=== PATIENT | female | born 1995 | race African-American/Black ===

== ENCOUNTER 2016-09-15 09:15 | Emergency (ER) | payer OTHER ==
[2016-09-15 09:28] VITALS: BP 122/67; PULSE 55; TEMP 97.9; BMI 23.1
[2016-09-15] MEDS ORDERED: diazePAM 5 MG TABLET PO ONE (10:10)
[2016-09-15] MEDS ORDERED: KETOROLAC TROMETHAMINE 60 MG/2 ML VIAL IM ONE (10:10)
[2016-09-15 10:12] LABS: URINE APPEARANCE CLEAR; URINE BILIRUBIN NEGATIVE (NEGATIVE); URINE COLOR LTYELLOW; URINE GLUCOSE (UA) NEGATIVE (NEGATIVE); URINE KETONE NEGATIVE (NEGATIVE); URINE NITRITE NEGATIVE (NEGATIVE); URINE PROTEIN NEGATIVE (NEGATIVE); URINE UROBILINOGEN NEGATIVE E.U./dl (0.2-1.0)
[2016-09-15 10:23] LABS: URINE BLOOD 1+ (NEGATIVE); URINE LEUK ESTERASE TRACE (NEGATIVE)
[2016-09-15 10:27] LABS: URINE MUCUS RARE; URINE RBC 1 /hpf (0-3); URINE WBC 1 /hpf (3-5)
[2016-09-15] MEDS ORDERED: diazePAM 5 MG TABLET ONE (10:27)
[2016-09-15] MEDS ORDERED: KETOROLAC TROMETHAMINE 60 MG/2 ML VIAL ONE (10:27)
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
== END 2016-09-15 11:42 | disposition home or self-care (01) ==
LOC: JERFT 09:15
PROC: 3E0233Z Introduction of Anti-inflammatory into Muscle, Percutaneous Approach (ICD-10-PCS; principal; 2016-09-15)
DX: S29.012A Strain of muscle and tendon of back wall of thorax, initial encounter (principal); X58.XXXA Exposure to other specified factors, initial encounter; Y93.89 Activity, other specified; Y92.9 Unspecified place or not applicable; Z72.0 Tobacco use
CPT/HCPCS: 71020-TC; 81003; 81015; 84703; 96372; 99281-25

== ENCOUNTER 2017-11-28 22:01 | Emergency (ER) | payer OTHER ==
[2017-11-28 22:12] VITALS: BP 115/67; PULSE 75; TEMP 98.3; BMI 22.1
--- NOTE | 2017-11-28 23:48 | PDOC ---
History of Present Illness - General Chief Complaint: Pain Stated Complaint: PAIN Time Seen by Provider: 11/28/17 22:49 History Source: Patient Exam Limitations: No Limitations - History of Present Illness Initial Comments: 11/28/17 23:47 The patient is a 22F with no PMH who presents with L hand pain. The patient states that she's had progressively worsening pain in her L 5th MCP joint. She describes sharp pain which radiates slightly up her finger and down her palm, exacerbated with movement and not alleviated by anything. She denies any fever, chills, nausea, vomiting, numbness, tingling, or weakness in her hand. LMP is Oct 17. Past History - Past Medical History Allergies/Adverse Reactions: Allergies Allergy/AdvReac Type Severity Reaction Status Date / Time No Known Allergies Allergy Verified 11/28/17 22:09 Home Medications: Ambulatory Orders Cyclobenzaprine HCl [Flexeril -] 5 mg PO HS #7 tablet 09/16/16 Naproxen [Naprosyn -] 500 mg PO BID #30 tablet 09/16/16 Sulfamethoxazole/Trimethoprim [Bactrim Ds -] 1 tab PO BID #14 tablet 11/29/17 COPD: No Other medical history: Pt denies - Immunization History Immunization Up to Date: Yes - Suicide/Smoking/Psychosocial Hx Smoking History: Never smoked Have you smoked in the past 12 months: Yes Number of Cigarettes Smoked Daily: 3 Information on smoking cessation initiated: No Hx Alcohol Use: No Drug/Substance Use Hx: No Substance Use Type: None Review of Systems - Review of Systems Able to Perform ROS?: Yes Comments:: 11/29/17 00:32 GENERAL/CONSTITUTIONAL: No fever or chills. No weakness. HEAD, EYES, EARS, NOSE AND THROAT: No change in vision. No ear pain or discharge. No sore throat. CARDIOVASCULAR: No chest pain, palpitations, or lightheadedness. RESPIRATORY: No cough, wheezing, shortness of breath, or hemoptysis. GASTROINTESTINAL: No nausea, vomiting, diarrhea, constipation, or abdominal pain. GENITOURINARY: No dysuria, frequency, hematuria, or change in urination. MUSCULOSKELETAL: Positive for R hand pain. No neck or back pain. SKIN: No rash or lesions. NEUROLOGIC: No headache, numbness, tingling, weakness, loss of consciousness, or change in strength/sensation. ENDOCRINE: No increased thirst. No abnormal weight change. HEMATOLOGIC/LYMPHATIC: No anemia, easy bleeding, or history of blood clots. ALLERGIC/IMMUNOLOGIC: No hives or skin allergy. Is the patient limited Tristanian proficient: No *Physical Exam - Vital Signs Last Vital Signs Temp Pulse Resp BP Pulse Ox 98.3 F 75 18 115/67 98 11/28/17 22:10 11/28/17 22:10 11/28/17 22:10 11/28/17 22:10 11/28/17 22:10 - Physical Exam Comments: 11/29/17 00:32 GENERAL: Well developed, well nourished. Awake and alert. No acute distress. HEENT: Normocephalic, atraumatic. Hearing grossly normal. Moist mucous membranes. PERRLA, EOMI. No conjunctival pallor. Sclera are non-icteric. NECK: Supple. Full ROM. No JVD. CARDIOVASCULAR: Regular rate and rhythm. No murmurs, rubs, or gallops. PULMONARY: No evidence of respiratory distress. Lungs clear to auscultation bilaterally. No wheezing, rales or rhonchi. ABDOMINAL: Soft. Non-tender. Non-distended. No rebound or guarding. GENITOURINARY: No CVA tenderness bilaterally. MUSCULOSKELETAL: Tenderness to palpation over L 5th MCP joint. Tenderness to extension and flexion of the finger. No streaking. Very mildly erythematous over 5th MCP. EXTREMITIES: No cyanosis. No clubbing. No edema. No calf tenderness. SKIN: Warm and dry. Normal capillary refill. No rashes. No jaundice. NEUROLOGICAL: Alert, awake, appropriate. Cranial nerves 2-12 intact. Neurovascularly intact in L hand. Normal speech. Gait is normal without ataxia. PSYCHIATRIC: Cooperative. Good eye contact. Appropriate mood and affect. ED Treatment Course - LABORATORY CBC & Chemistry Diagram: 11/29/17 00:50 11/29/17 00:50 - RADIOLOGY Radiology Studies Ordered: Category Date Time Status HAND- LEFT [RAD] Stat Radiology 11/28/17 23:28 Ordered Medical Decision Making - Medical Decision Making 11/29/17 00:35 The patient is a 22F with no PMH who presents with L 5th MCP pain. 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 Will treat with a dose of abx and antiinflammatory medications for suspected cellulitis. Pending imaging and basic labs. 11/29/17 02:22 XR negative on preliminary read. 1.5 gram unasyn and toradol given for pain control. *DC/Admit/Observation/Transfer Diagnosis at time of Disposition: Metacarpophalangeal joint pain of left hand - Discharge Dispostion Disposition: HOME Condition at time of disposition: Stable Admit: No - Prescriptions Prescriptions: Sulfamethoxazole/Trimethoprim [Bactrim Ds -] 1 tab PO BID #14 tablet - Referrals Referrals: Dwight Rehman MD [Staff Physician] - - Patient Instructions Printed Discharge Instructions: DI for Cellulitis -- Adult Additional Instructions: Please return to the ER if you have any signs or symptoms of chest pain, shortness of breath, uncontrollable fever, chills, nausea, vomiting, numbness, tingling, or weakness in any part of your body, changes in vision, or slurred speech. Please take your medications as prescribed. Please follow up with Dr. Rehman, a primary care physician, in 2-3 days. Please return to the ER if symptoms persist, worsen, or new symptoms arise. - Post Discharge Activity
--- NOTE | 2017-11-29 00:08 | PDOC ---
Attending Attestation - HPI HPI: 11/29/17 00:22 The patient is a 22-year-old female, with no significant past medical history, who presents to the ED with left fifth digit mcp joint pain. 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 She presents to the ED today because her pain has progressively worsened. She describes the pain as sharp in sensation, occasionally radiating up and down her finger. On exam, the patient states that her finger appears more swollen than usual. The patient denies having any other symptoms at this time. Allergies: NKA <EmersonIndu - Last Filed: 11/29/17 00:22> - Resident Resident Name: iMah Obregon - ED Attending Attestation I have performed the following: I have examined & evaluated the patient, The case was reviewed & discussed with the resident, I agree w/resident's findings & plan, Exceptions are as noted - Physicial Exam PE: 11/29/17 00:13 *Physical Exam General Appearance: Yes: Appropriately Dressed. No: Apparent Distress, Intoxicated HEENT: positive: EOMI, TREMAINE, Normal ENT Inspection, Normal Voice, TMs Normal, Pharynx Normal. negative: Pale Conjunctivae, Photophobia, Scleral Icterus (R), Scleral Icterus (L) Neck: positive: Trachea midline, Normal Thyroid, Supple. negative: Tender, Rigid, Carotid bruit, Stridor, Lymphadenopathy (R), Lymphadenopathy (L), Thyromegaly Respiratory/Chest: positive: Lungs Clear, Normal Breath Sounds. negative: Chest Tender, Respiratory Distress, Accessory Muscle Use, Labored Respiration, RES, Crackles, Rales, Rhonchi, Stridor, Wheezing, Dullness Cardiovascular: positive: Regular Rhythm, Regular Rate, S1, S2. negative: Edema , JVD, Murmur, Bradycardia, Tachycardia Vascular Pulses: Dorsalis-Pedis (R): 2+, Doralis-Pedis (L): 2+ Gastrointestinal/Abdominal: positive: Normal Bowel Sounds, Flat, Soft. negative : Tender, Organomegaly, Pulsatile Mass, Increased Bowel Sounds, Decreased BS, Distended, Guarding, Rebound, Hernia, Hepatomegaly, Spleenomegaly Lymphatic: negative: Adenopathy, Tenderness Musculoskeletal: positive:tenderness and swelling to left 5th mcp joint region. pain on active and passive range of motion of the left fifth finger negative : CVA Tenderness, Decreased Range of Motion Extremity: positive: Normal Capillary Refill, Normal Inspection, Normal Range of Motion, Pelvis Stable. negative: Tender, Pedal Edema, Swelling, Erythema Integumentary: positive: Normal Color, Dry, Warm. 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 negative: EOM Palsy, Facial Droop, Sensory Deficit - Medical Decision Making 11/29/17 19:26 Pt treated and released <Roel To - Last Filed: 11/29/17 19:26> Attestations - Attestations 11/29/17 00:24 Documentation prepared by Indu Norman, acting as auditor medical claims for Roel To MD. <Indu Norman - Last Filed: 11/29/17 00:22>
[2017-11-29] MEDS ORDERED: SULBACTAM NA IVPB ONE (00:13)
[2017-11-29] MEDS ORDERED: AMPICILLIN NA IVPB ONE (00:13)
[2017-11-29] MEDS ORDERED: SODIUM CHLORIDE IVPB ONE (00:13)
[2017-11-29] MEDS ORDERED: AMPICILLIN NA/SULBACTAM NA 1.5 GM in SODIUM CHLORIDE 100 ML IVPB ONE (01:00)
[2017-11-29 01:08] LABS: BASO % 0.9 % (0-2.0); EOS % 1.6 % (0-4.5); HEMATOCRIT 36.8 % (32.4-45.2); LYMPH % 32.2 % (8-40); MCH 32.7 pg (25.7-33.7); MCHC 35.3 g/dl (32.0-36.0); MEAN CELL VOLUME 92.5 fl (80-96); MEAN PLT VOLUME 8.8 fl (7.5-11.1); MONO % 7.5 % (3.8-10.2); NEUT % 57.8 % (42.8-82.8); PLATELET COUNT 252 K/MM3 (134-434); RBC 3.97 M/mm3 (3.60-5.2); WHITE BLOOD COUNT 10.5 K/mm3 (4.0-10.0)
[2017-11-29 01:47] LABS: ALBUMIN 4.3 g/dl (3.4-5.0); ALK PHOS 49 U/L (45-117); ANION GAP 9 (8-16); BILIRUBIN,TOTAL 0.5 mg/dL (0.2-1.0); CALCIUM 9.1 mg/dL (8.5-10.1); CHLORIDE 104 mmol/L (98-107); CO2 27 mmol/L (21-32); CREATININE 0.7 mg/dL (0.55-1.02); GLUCOSE,RANDOM 84 mg/dL (74-106); POTASSIUM 3.4 mmol/L (3.5-5.1); SGOT/AST 15 U/L (15-37); SGPT/ALT 17 U/L (12-78); SODIUM 140 mmol/L (136-145); TOT PROT 6.9 g/dl (6.4-8.2)
[2017-11-29] MEDS ORDERED: KETOROLAC TROMETHAMINE 30 MG/1 ML VIAL IVPUSH ONE (01:56)
[2017-11-29 01:59] LABS: BLOOD UREA NITROGEN 13 mg/dL (7-18)
[2017-11-29] MEDS ORDERED: KETOROLAC TROMETHAMINE 30 MG/1 ML VIAL ONE (02:12)
== END 2017-11-29 02:48 | disposition home or self-care (01) ==
LOC: JERFT 22:01 → JER 22:01
PROC: 3E03329 Introduction of Other Anti-infective into Peripheral Vein, Percutaneous Approach (ICD-10-PCS; principal; 2017-11-28)
PROC: 3E0333Z Introduction of Anti-inflammatory into Peripheral Vein, Percutaneous Approach (ICD-10-PCS; 2017-11-28)
DX: M25.542 Pain in joints of left hand (principal)
CPT/HCPCS: 36415; 73130-TC-LR-FY; 80053; 84703; 85025; 99282-25

== ENCOUNTER 2019-11-10 15:11 | Emergency (ER) | payer OTHER ==
[2019-11-10 16:02] VITALS: BP 120/61; PULSE 65; TEMP 97.8; BMI 22.4
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
== END 2019-11-10 17:07 | disposition home or self-care (01) ==
LOC: JERFT 15:11
DX: S20.211A Contusion of right front wall of thorax, initial encounter (principal); M25.562 Pain in left knee; V49.49XA Driver injured in collision with other motor vehicles in traffic accident, initial encounter; Y92.488 Other paved roadways as the place of occurrence of the external cause; Y93.89 Activity, other specified; Y99.8 Other external cause status
CPT/HCPCS: 71046-TC-FY; 71111-TC-FY; 73562-TC-LT-FY; 99284-25